=== PATIENT | male | born 1950 | race Caucasian/White ===

== ENCOUNTER 2017-02-04 03:47 | Inpatient (IN) | payer MEDICARE ==
[~2017-02-04] VITALS: Ht 185.4 cm; Wt 93.2 kg
[2017-02-04] MEDS ORDERED: IV NORMAL SALINE 1000ML BAG 1,000 ML IV SCH (04:46)
[2017-02-04 04:52] LABS: BASO # 0.1 x10^3/uL (0.0-0.2); BASO % 1 % (0-3); EOS % 1 % (0-3); HEMATOCRIT 29.6 % (39.0-53.0); HEMOGLOBIN 10.4 g/dL (13.0-17.5); LYMPH # 2.3 x10^3/uL (1.0-4.8); LYMPH % 31 % (24-48); MEAN CORPUSCULAR HEMOGLOBIN 33 pg (25-35); MEAN CORPUSCULAR HGB CONC 35 g/dL (31-37); MEAN CORPUSCULAR VOLUME 94 fL (79-100); MONO % 9 % (0-9); NEUT % 58 % (31-73); PLATELET COUNT 147 x10^3/uL (140-400); RED BLOOD COUNT 3.16 x10^6/uL (4.30-5.70); RED CELL DISTRIBUTION WIDTH 14.5 % (11.5-14.5); WHITE BLOOD COUNT 7.4 x10^3/uL (4.0-11.0)
[2017-02-04 04:59] LABS: CALCIUM 7.8 mg/dL (8.5-10.1); CREATININE 0.9 mg/dL (0.7-1.3); GFR 83.9; POTASSIUM 3.8 mmol/L (3.5-5.1)
[2017-02-04] MEDS ORDERED: FAMOTIDINE 20 MG/2 ML VIAL IVP ONE (05:00)
[2017-02-04] MEDS ORDERED: ONDANSETRON PF 4 MG/2 ML VIAL. IV ONE (05:00)
[2017-02-04 05:05] LABS: ALBUMIN 3.1 g/dL (3.4-5.0); ALBUMIN/GLOBULIN RATIO 0.9 (1.0-1.7); TOTAL BILIRUBIN 1.2 mg/dL (0.2-1.0); TOTAL PROTEIN 6.4 g/dL (6.4-8.2)
[2017-02-04] MEDS ORDERED: IV NORMAL SALINE 1000ML BAG 1,000 ML IV ONE (05:30)
--- NOTE | 2017-02-04 05:50 | PHYS DOC ---
Past Medical History Past Medical History: Diabetes-Type II Additional Past Medical Histor: states he use to receive medication for DM but no longer does. Alcohol Use: Occasionally Drug Use: Marijuana Adult General Chief Complaint Chief Complaint: MECHANICAL FALL HPI HPI Patient is a 66 year old male who presents to the emergency department by EMS after suffering a fall at home. The patient's girlfriend called after the patient was found on the floor. The patient is confused and is a poor historian. The patient does state that he is having pain in his abdomen and also states that he is very thirsty. Patient admits to consuming alcohol over the past 3 days. Patient states that he has had history of diabetes, however he lost approximately 70 pounds and states that he was told by his doctor that his diabetes had resolved after his weight loss ecchymosis on no medications for diabetes at this time. Patient states that his abdomen "hurts all over." Patient rates his pain on my examination as 5 out of 10. Patient states that he is very thirsty at this time and is requesting water. Review of Systems Review of Systems Constitutional: Denies fever or chills [] Eyes: Denies change in visual acuity, redness, or eye pain [] HENT: Denies nasal congestion or sore throat [] Respiratory: Denies cough or shortness of breath [] Cardiovascular: Denies chest pain or edema [] GI: Abdominal pain, nausea [] : Denies dysuria or hematuria [] Musculoskeletal: Denies back pain or joint pain [] Integument: Denies rash or skin lesions [] Neurologic: Headache, denies focal weakness or sensory changes [] Current Medications Current Medications Current Medications Medications (Trade) Dose Ordered Sig/Isamar Start Time Stop Time Status Last Admin Dose Admin Famotidine (Pepcid) 20 mg 1X ONCE 02/04/17 05:00 02/04/17 05:18 DC 02/04/17 05:16 20 MG Ondansetron HCl (Zofran) 4 mg 1X ONCE 02/04/17 05:00 02/04/17 05:18 DC 02/04/17 05:16 4 MG Sodium Chloride 1,000 ml @ 1,000 mls/hr Q1H 02/04/17 04:46 02/04/17 05:45 02/04/17 05:15 1,000 MLS/HR Allergies Allergies Allergies Coded Allergies Type Severity Reaction Last Updated Verified Penicillins Allergy Mild Unknown 02/04/17 Yes Physical Exam Physical Exam Constitutional: Alert, afebrile, appears ill. [] HENT: Normocephalic, atraumatic, bilateral external ears normal, oropharynx dry , no oral exudates, nose normal. [] Eyes: PERRLA, EOMI, conjunctiva normal, no discharge. [] Neck: Normal range of motion, no tenderness, supple, no stridor. [] Cardiovascular: Tachycardia, regular rhythm, no murmur [] Lungs & Thorax: Bilateral breath sounds clear to auscultation [] Abdomen: Bowel sounds normal, soft, no tenderness, no masses, no pulsatile masses. [] Skin: Warm, dry, no erythema, no rash. [] Back: No tenderness, no CVA tenderness. [] Extremities: No tenderness, no cyanosis, no clubbing, ROM intact, no edema. [] Neurologic: Alert, slight slurring of speech, normal motor function, normal sensory function, no focal deficits noted. [] Current Patient Data Vital Signs Vital Signs Date Time Temp Pulse Resp B/P (MAP) Pulse Ox O2 Delivery O2 Flow Rate FiO2 02/04/17 04:39 121 104/62 (76) 94 Room Air 02/04/17 04:06 98.4 20 98.4 Lab Values Laboratory Tests Test 02/04/17 03:55 02/04/17 04:48 White Blood Count 7.4 x10^3/uL (4.0-11.0) Red Blood Count 3.16 x10^6/uL (4.30-5.70) L Hemoglobin 10.4 g/dL (13.0-17.5) L Hematocrit 29.6 % (39.0-53.0) L Mean Corpuscular Volume 94 fL (79-100) Mean Corpuscular Hemoglobin 33 pg (25-35) Mean Corpuscular Hemoglobin Concent 35 g/dL (31-37) Red Cell Distribution Width 14.5 % (11.5-14.5) Platelet Count 147 x10^3/uL (140-400) Neutrophils (%) (Auto) 58 % (31-73) Lymphocytes (%) (Auto) 31 % (24-48) Monocytes (%) (Auto) 9 % (0-9) Eosinophils (%) (Auto) 1 % (0-3) Basophils (%) (Auto) 1 % (0-3) Neutrophils # (Auto) 4.3 x10^3uL (1.8-7.7) Lymphocytes # (Auto) 2.3 x10^3/uL (1.0-4.8) Monocytes # (Auto) 0.7 x10^3/uL (0.0-1.1) Eosinophils # (Auto) 0.1 x10^3/uL (0.0-0.7) Basophils # (Auto) 0.1 x10^3/uL (0.0-0.2) Sodium Level 143 mmol/L (136-145) Potassium Level 3.8 mmol/L (3.5-5.1) Chloride Level 102 mmol/L (98-107) Carbon Dioxide Level 24 mmol/L (21-32) Anion Gap 17 (6-14) H Blood Urea Nitrogen 41 mg/dL (8-26) H Creatinine 0.9 mg/dL (0.7-1.3) Estimated GFR (Cockcroft-Gault) 83.9 BUN/Creatinine Ratio 46 (6-20) H Glucose Level 180 mg/dL (70-99) H Calcium Level 7.8 mg/dL (8.5-10.1) L Total Bilirubin 1.2 mg/dL (0.2-1.0) H Aspartate Amino Transferase (AST) 75 U/L (15-37) H Alanine Aminotransferase (ALT) 65 U/L (16-63) H Alkaline Phosphatase 60 U/L (46-116) Total Protein 6.4 g/dL (6.4-8.2) Albumin 3.1 g/dL (3.4-5.0) L Albumin/Globulin Ratio 0.9 (1.0-1.7) L Lipase 102 U/L (73-393) Ethyl Alcohol Level 253 mg/dL (0-10) H Glucose (Fingerstick) 157 mg/dL (70-99) H Laboratory Tests 02/04/17 03:55 Laboratory Tests 02/04/17 03:55 EKG EKG Interpreted by me: Heart rate 123, sinus tachycardia, normal intervals, normal axis, no acute ST/T-wave abnormalities present [] Radiology/Procedures Radiology/Procedures 3 view acute abdominal series interpreted by me: No pulmonary infiltrates or effusions, normal cardiac silhouette, moderate to large amount of stool retained in colon[] Course & Med Decision Making Course & Med Decision Making Pertinent Labs and Imaging studies reviewed. (See chart for details) The patient appears severely dehydrated on exam and patient's lab work shows a significantly elevated BUN level with normal creatinine as well as an anion gap. I suspect that the patient is dehydrated secondary to alcoholic ketoacidosis. The patient started on IV fluids in the emergency department. Patient will be admitted for further care as patient's also display signs of mild confusion. I suspect that the patient is a daily alcohol drinker and a component of possible alcohol withdrawal may be present. I spoke with Dr. Rich who accepted care patient in hospital. Dragon Disclaimer Dragon Disclaimer This electronic medical record was generated, in whole or in part, using a voice recognition dictation system. Departure Departure Impression: Primary Impression: Dehydration Additional Impression: Alcoholic ketoacidosis Disposition: ADMITTED INPATIENT Admitting Physician: Cynthia Rich Condition: GUARDED Referrals: UNKNOWN PCP NAME (PCP) Problem Qualifiers TATIANA LOBO MD Feb 04, 2017 05:50
[2017-02-04] MEDS ORDERED: ONDANSETRON PF 4 MG/2 ML VIAL. IV PRN (06:00)
--- NOTE | 2017-02-04 06:15 | EKG ---
[facility] [address] [place] [address] Test Date: 2017-02-04 Test Time: 03:56:21 Pat Name: KATY PENDLETON Department: Room: Gender: M Heel Seat Laster: : 1950 Requested By: TATIANA LOBO Order Number: [id number] Reading MD: Jacky Mullins Measurements Intervals [place] Rate: 123 P: -138 [place]: 74 QRS: 19 QRSD: 68 T: 55 QT: 298 QTc: 432 Interpretive Statements SINUS TACHYCARDIA Electronically Signed On 02-04-2017 12:05:47 CDT by Jacky Mullins
[2017-02-04] MEDS: LORazepam 1 MG TABLET PO SCH ×3 (06:27→21:00)
[2017-02-04] MEDS: IV NORMAL SALINE 1000ML BAG 1,000 ML IV SCH ×3 (06:29→15:24)
--- NOTE | 2017-02-04 07:20 | RAD ---
Exam performed: Acute abdominal series. Clinical indication: Diffuse abdominal pain today Date of Service: 02/04/17. Comparison: Single view chest from 03/17/09 Findings: One view chest radiograph reveal a normal cardiomediastinal contour. The lungs are clear. Left shoulder arthroplasty. Multiple old healed left rib fractures are redemonstrated. Evidence of pleural fluid or free subdiaphragmatic air is absent. Mild gaseous prominence of the small bowel loops. There is diffuse scattered stool throughout the colon. A small density is seen overlying the midline sacrum could possibly represent an ingested material. No pathologic calcification or organomegaly is seen. Spondylotic changes involving the lumbar spine. Impression: No acute cardiopulmonary process seen. Mild gaseous prominence of the small bowel loop, likely mild ileus pattern. Extensive scattered stool throughout the colon suggesting constipation.
[2017-02-04] MEDS ORDERED: MULTIVITAMIN with MINERAL TABLET. PO SCH (09:00)
[2017-02-04] MEDS ORDERED: FOLIC ACID 1 MG TABLET. PO SCH (09:00)
[2017-02-04] MEDS ORDERED: THIAMINE 100 MG TABLET. PO SCH (09:00)
[2017-02-04 10:29] VITALS: BP 110/72
[2017-02-04 11:00] VITALS: BP 107/62
--- NOTE | 2017-02-04 13:01 | PDOC1 ---
History and Physical Date of Admission Date of Admission DATE: 02/04/17 TIME: 12:56 Identification/Chief Complaint Chief Complaint intox, fall Problems: Source Source: Chart review, Patient History of Present Illness History of Present Illness Mr. Rodriguez, is a 66 year old male admit after a fall at home, he was found on the floor. The patient is confused and is a poor historian. Intoxcated in the ER, alcohol level > 250, he has stopped drinking more than 8 hours before. He drinks "whatever he can get his hands on" he reports feeling improved, abd pain is better, no back pain heavy recent EtOH consumption, he is retired from [employer] Past Medical History Cardiovascular: No pertinent hx Pulmonary: No pertinent hx GI: No pertinent hx Heme/Onc: No pertinent hx Musculoskeletal: Osteoarthritis, Other (right wrist deformity he reports from [facility]) Family History Family History: No Significant Social History ALCOHOL: heavy Drugs: None Current Problem List Problem List Problems Medical Problems: (1) Alcoholic ketoacidosis Status: Acute (2) Dehydration Status: Acute Problems: Current Medications Current Medications Current Medications Sodium Chloride 1,000 ml @ 1,000 mls/hr Q1H IV Last administered on 02/04/17 05:15; Start 02/04/17 at 04:46; Stop 02/04/17 at 05:45; Status DC Ondansetron HCl (Zofran) 4 mg 1X ONCE IV Last administered on 02/04/17 05:16 ; Start 02/04/17 at 05:00; Stop 02/04/17 at 05:18; Status DC Famotidine (Pepcid) 20 mg 1X ONCE IVP Last administered on 02/04/17 05:16; Start 02/04/17 at 05:00; Stop 02/04/17 at 05:18; Status DC Sodium Chloride 1,000 ml @ 1,000 mls/hr 1X ONCE IV Last administered on 05:40; Start 02/04/17 at 05:30; Stop 02/04/17 at 06:30; Status DC Ondansetron HCl (Zofran) 4 mg PRN Q8HRS PRN IV NAUSEA/VOMITING; Start 02/04/17 at 06:00; Stop 02/05/17 at 05:59 Sodium Chloride 1,000 ml @ 150 mls/hr Q6H40M IV Last administered on t 07:35; Start 02/04/17 at 06:00; Stop 02/05/17 at 05:59 Multivitamins (Thera M Plus) 1 tab DAILY PO ; Start 02/04/17 at 09:00; Stop at 09:00; Status DC Folic Acid (Folic Acid) 1 mg DAILY PO ; Start 02/04/17 at 09:00; Stop 02/04/17 at 09:00; Status DC Lorazepam (Ativan) 2 mg Q6H PO Last administered on 02/04/17t 12:15; Start at 06:00; Stop 02/05/17 at 12:01 Thiamine Mononitrate (Vitamin B-1) 100 mg DAILY PO ; Start 02/04/17 at 09:00; Stop 02/04/17 at 09:00; Status DC Multivitamins (Thera M Plus) 1 tab DAILY PO ; Start 02/04/17 at 09:15 Folic Acid (Folic Acid) 1 mg DAILY PO ; Start 02/04/17 at 09:15 Thiamine Mononitrate (Vitamin B-1) 100 mg DAILY PO ; Start 02/04/17 at 09:15 Allergies Allergies: Coded Allergies: Penicillins (Verified Allergy, Mild, Unknown, 02/04/17) ROS General: No: Chills, Night Sweats, Fatigue, Malaise, Appetite, Other PSYCHOLOGICAL ROS: No: Anxiety, Behavioral Disorder, Concentration difficultie , Decreased libido, Depression, Disorientation, Hallucinations, Hostility, Irritablity, Memory difficulties, Mood Swings, Obsessive thoughts, Physical abuse, Sexual abuse, Sleep disturbances, Suicidal ideation, Other Eyes: No Blurry vision, No Decreased vision, No Double vision, No Dry eyes, No Excessive tearing, No Eye Pain, No Itchy Eyes, No Loss of vision, No Photophobia , No Scotomata, No Uses contacts, No Uses glasses, No Other HEENT: No: Heacaches, Visual Changes, Hearing change, Nasal congestion, Nasal discharge, Oral lesions, Sinus pain, Sore Throat, Epistaxis, Sneezing, Snoring, Tinnitus, Vertigo, Vocal changes, Other Cardiovascular: No Chest Pain, No Palpitations, No Orthopnea, No Paroxysmal Noc. Dyspnea, No Edema, No Lt Headedness, No Other Gastrointestinal: Yes Nausea, Yes Abdominal Pain, No Vomiting, No Diarrhea, No Constipation, No Melena, No Hematochezia, No Other Genitourinary: No Dysuria, No Frequency, No Incontinence, No Hematuria, No Retention, No Discharge, No Urgency, No Pain, No Flank Pain, No Other, No , No , No , No , No , No , No Musculoskeletal: Yes Joint Pain, Yes Joint Stiffness, Yes Pain In:, No Gait Disturbance, No Joint Swelling, No Muscle Pain, No Muscular Weakness , No Swelling In:, No Other Neurological: No Behavorial Changes, No Bowel/Bladder ControlChng, No Confusion , No Dizziness, No Gait Disturbance, No Headaches, No Impaired Coord/balance, No Memory Loss, No Numbness/Tingling, No Seizures, No Speech Problems, No Tremors, No Visual Changes, No Weakness, No Other Skin: Yes Dry Skin, No Eczema, No Hair Changes, No Lumps, No Mole Changes, No Mottling, No Nail Changes, No Pruritus, No Rash, No Skin Lesion Changes, No Other, No Acne Physical Exam General: Alert, Oriented X3, mild distress, moderate distress HEENT: Atraumatic, PERRLA, EOMI Lungs: Clear to auscultation Neuro: Other (asterixis is slight, + nystagmus) Vitals Vitals Vital Signs Date Time Temp Pulse Resp B/P (MAP) Pulse Ox O2 Delivery O2 Flow Rate FiO2 02/04/17 11:00 98.8 84 20 107/62 (77) 84 Room Air 98.8 Labs Labs Laboratory Tests Test 02/04/17 03:55 02/04/17 04:48 White Blood Count 7.4 x10^3/uL (4.0-11.0) Red Blood Count 3.16 x10^6/uL (4.30-5.70) Hemoglobin 10.4 g/dL (13.0-17.5) Hematocrit 29.6 % (39.0-53.0) Mean Corpuscular Volume 94 fL (79-100) Mean Corpuscular Hemoglobin 33 pg (25-35) Mean Corpuscular Hemoglobin Concent 35 g/dL (31-37) Red Cell Distribution Width 14.5 % (11.5-14.5) Platelet Count 147 x10^3/uL (140-400) Neutrophils (%) (Auto) 58 % (31-73) Lymphocytes (%) (Auto) 31 % (24-48) Monocytes (%) (Auto) 9 % (0-9) Eosinophils (%) (Auto) 1 % (0-3) Basophils (%) (Auto) 1 % (0-3) Neutrophils # (Auto) 4.3 x10^3uL (1.8-7.7) Lymphocytes # (Auto) 2.3 x10^3/uL (1.0-4.8) Monocytes # (Auto) 0.7 x10^3/uL (0.0-1.1) Eosinophils # (Auto) 0.1 x10^3/uL (0.0-0.7) Basophils # (Auto) 0.1 x10^3/uL (0.0-0.2) Sodium Level 143 mmol/L (136-145) Potassium Level 3.8 mmol/L (3.5-5.1) Chloride Level 102 mmol/L (98-107) Carbon Dioxide Level 24 mmol/L (21-32) Anion Gap 17 (6-14) Blood Urea Nitrogen 41 mg/dL (8-26) Creatinine 0.9 mg/dL (0.7-1.3) Estimated GFR (Cockcroft-Gault) 83.9 BUN/Creatinine Ratio 46 (6-20) Glucose Level 180 mg/dL (70-99) Calcium Level 7.8 mg/dL (8.5-10.1) Total Bilirubin 1.2 mg/dL (0.2-1.0) Aspartate Amino Transf (AST/SGOT) 75 U/L (15-37) Alanine Aminotransferase (ALT/SGPT) 65 U/L (16-63) Alkaline Phosphatase 60 U/L (46-116) Total Protein 6.4 g/dL (6.4-8.2) Albumin 3.1 g/dL (3.4-5.0) Albumin/Globulin Ratio 0.9 (1.0-1.7) Lipase 102 U/L (73-393) Ethyl Alcohol Level 253 mg/dL (0-10) Glucose (Fingerstick) 157 mg/dL (70-99) Laboratory Tests Test 02/04/17 03:55 02/04/17 04:48 White Blood Count 7.4 x10^3/uL (4.0-11.0) Red Blood Count 3.16 x10^6/uL (4.30-5.70) Hemoglobin 10.4 g/dL (13.0-17.5) Hematocrit 29.6 % (39.0-53.0) Mean Corpuscular Volume 94 fL (79-100) Mean Corpuscular Hemoglobin 33 pg (25-35) Mean Corpuscular Hemoglobin Concent 35 g/dL (31-37) Red Cell Distribution Width 14.5 % (11.5-14.5) Platelet Count 147 x10^3/uL (140-400) Neutrophils (%) (Auto) 58 % (31-73) Lymphocytes (%) (Auto) 31 % (24-48) Monocytes (%) (Auto) 9 % (0-9) Eosinophils (%) (Auto) 1 % (0-3) Basophils (%) (Auto) 1 % (0-3) Neutrophils # (Auto) 4.3 x10^3uL (1.8-7.7) Lymphocytes # (Auto) 2.3 x10^3/uL (1.0-4.8) Monocytes # (Auto) 0.7 x10^3/uL (0.0-1.1) Eosinophils # (Auto) 0.1 x10^3/uL (0.0-0.7) Basophils # (Auto) 0.1 x10^3/uL (0.0-0.2) Sodium Level 143 mmol/L (136-145) Potassium Level 3.8 mmol/L (3.5-5.1) Chloride Level 102 mmol/L (98-107) Carbon Dioxide Level 24 mmol/L (21-32) Anion Gap 17 (6-14) Blood Urea Nitrogen 41 mg/dL (8-26) Creatinine 0.9 mg/dL (0.7-1.3) Estimated GFR (Cockcroft-Gault) 83.9 BUN/Creatinine Ratio 46 (6-20) Glucose Level 180 mg/dL (70-99) Calcium Level 7.8 mg/dL (8.5-10.1) Total Bilirubin 1.2 mg/dL (0.2-1.0) Aspartate Amino Transf (AST/SGOT) 75 U/L (15-37) Alanine Aminotransferase (ALT/SGPT) 65 U/L (16-63) Alkaline Phosphatase 60 U/L (46-116) Total Protein 6.4 g/dL (6.4-8.2) Albumin 3.1 g/dL (3.4-5.0) Albumin/Globulin Ratio 0.9 (1.0-1.7) Lipase 102 U/L (73-393) Ethyl Alcohol Level 253 mg/dL (0-10) Glucose (Fingerstick) 157 mg/dL (70-99) VTE Prophylaxis Ordered VTE Prophylaxis Devices: No VTE Pharmacological Prophylaxi: Yes Assessment/Plan Assessment/Plan Acute toxic encephalopathy, EtOH intoxication and etOH abuse Acute abd pain, EtOH abuse, possible gastritis, cont IV h2 gary Banana bag, then PO, iv fluid clear liquids as tolerated SHARONA SLATER MD Feb 04, 2017 13:01
[2017-02-04] MEDS ORDERED: FAMOTIDINE 20 MG/2 ML VIAL IVP SCH (13:30)
[2017-02-04] MEDS ORDERED: MULTIVIT INFUSN,ADULT 4,VIT K 10 ML, FOLIC ACID 1 MG, THIAMINE 100 MG in IV RINGERS,LAC... IV ONE (13:30)
[2017-02-04 15:00] VITALS: BP 147/84
[2017-02-04] MEDS ORDERED: CARVEDILOL 6.25 MG TABLET. PO SCH (17:00)
[2017-02-04] MEDS: CARVEDILOL 3.125 MG TABLET. PO SCH (17:21)
[2017-02-04] MEDS: PANTOPRAZOLE SODIUM IV 80 MG in IV NORMAL SALINE 100ML 100 ML IV SCH (17:22)
[2017-02-04 17:38] LABS: BASO % 1 % (0-3); EOS % 1 % (0-3); HEMATOCRIT 22.6 % (39.0-53.0); HEMOGLOBIN 7.8 g/dL (13.0-17.5); LYMPH # 1.2 x10^3/uL (1.0-4.8); LYMPH % 14 % (24-48); MEAN CORPUSCULAR HEMOGLOBIN 33 pg (25-35); MEAN CORPUSCULAR HGB CONC 35 g/dL (31-37); MEAN CORPUSCULAR VOLUME 94 fL (79-100); MONO % 8 % (0-9); NEUT % 77 % (31-73); PLATELET COUNT 104 x10^3/uL (140-400); RED BLOOD COUNT 2.41 x10^6/uL (4.30-5.70); RED CELL DISTRIBUTION WIDTH 14.5 % (11.5-14.5); WHITE BLOOD COUNT 8.2 x10^3/uL (4.0-11.0)
[2017-02-04 19:00] VITALS: BP 170/90
[2017-02-04 19:12] LABS: INR 1.2 (0.8-1.1); PROTHROMBIN TIME PATIENT 14.5 SEC (11.7-14.0)
[2017-02-04 20:14] VITALS: BP 145/84
[2017-02-04 23:00] VITALS: BP 125/72
[2017-02-04 23:05] LABS: BASO % 0 % (0-3); EOS % 1 % (0-3); HEMATOCRIT 21.7 % (39.0-53.0); HEMOGLOBIN 7.5 g/dL (13.0-17.5); LYMPH # 1.6 x10^3/uL (1.0-4.8); LYMPH % 21 % (24-48); MEAN CORPUSCULAR HEMOGLOBIN 33 pg (25-35); MEAN CORPUSCULAR HGB CONC 35 g/dL (31-37); MEAN CORPUSCULAR VOLUME 94 fL (79-100); MONO % 10 % (0-9); NEUT % 68 % (31-73); PLATELET COUNT 98 x10^3/uL (140-400); RED CELL DISTRIBUTION WIDTH 14.1 % (11.5-14.5); WHITE BLOOD COUNT 7.7 x10^3/uL (4.0-11.0)
[2017-02-05] VITALS (7 sets, daily range): BP systolic 117–144; BP diastolic 72–95
[2017-02-05] MEDS: IV NORMAL SALINE 1000ML BAG 1,000 ML IV SCH ×2 (00:20→02:00)
[2017-02-05] MEDS: PANTOPRAZOLE SODIUM IV 80 MG in IV NORMAL SALINE 100ML 100 ML IV SCH ×2 (01:41→10:55)
--- NOTE | 2017-02-05 02:03 | ACF ---
Admission Forms Criteria DEHYDRATION Clinical Indications for Admission to Inpatient Care ([place]/check or initial the applicable condition/criteria) Admission is indicated for 1or more of the following (1)(2)(3) [ ]I. Serious cause for dehydration requiring acute hospitalization(e.g., bowel obstruction, increased intracranial pressure, infectious cause) [X]II. Inpatient admission required [A] rather than observation care (see Dehydration:Observation Care guideline as appropriate)because of ANY ONE of the following (4)(5) [ ]a) Vomiting that is severe or persistent [X]a) Dehydration that is severe or persistent [ ]a) IV fluid required rather than oral rehydration to replace significant ongoing(eg, for greater than 24 hours)losses(greaterthan3 L/[id number] ) (6) [ ]a) Parenteral nutrition regimen that must be implemented on inpatient basis [ ]a) Other condition, treatment, or monitoring requiring inpatient admission Extended stay beyond goal length of stay may be needed for (1)(2)(3)(9) [ ]a) Chronic severe dehydration [ ]b) Persistent vital sign changes, severe electrolyte imbalance, or diagnosed cause of dehydration that requires continued hospitalization(e.g., bowel obstruction, increased intracranial pressure) [ ]c) Severe comorbid illness (e.g., renal failure, heart failure, poorly controlled diabetes) [ ]d) Older patients (75 years or older) The original [facility] content created by [facility] has been revised. The portions of the content which have been revised are identified through the use of italic text, and [facility] has neither reviewed nor approved the modified material. All other unmodified content is copyright [email or web address]. Please see references footnoted in the original [email or web address] edition 2014 Admission Criteria Met?: Yes LILY PATHAK Feb 05, 2017 02:03
[2017-02-05 04:29] LABS: BASO % 1 % (0-3); EOS % 1 % (0-3); HEMATOCRIT 21.8 % (39.0-53.0); HEMOGLOBIN 7.7 g/dL (13.0-17.5); LYMPH # 1.4 x10^3/uL (1.0-4.8); LYMPH % 20 % (24-48); MEAN CORPUSCULAR HEMOGLOBIN 34 pg (25-35); MEAN CORPUSCULAR HGB CONC 35 g/dL (31-37); MEAN CORPUSCULAR VOLUME 95 fL (79-100); MONO % 8 % (0-9); NEUT % 71 % (31-73); PLATELET COUNT 98 x10^3/uL (140-400); RED CELL DISTRIBUTION WIDTH 14.5 % (11.5-14.5); WHITE BLOOD COUNT 6.9 x10^3/uL (4.0-11.0)
[2017-02-05 08:20] LABS: ALBUMIN 2.7 g/dL (3.4-5.0); CALCIUM 7.3 mg/dL (8.5-10.1); CREATININE 0.9 mg/dL (0.7-1.3); GFR 83.9; POTASSIUM 3.4 mmol/L (3.5-5.1); TOTAL BILIRUBIN 2.3 mg/dL (0.2-1.0); TOTAL PROTEIN 5.5 g/dL (6.4-8.2)
[2017-02-05] MEDS: CARVEDILOL 3.125 MG TABLET. PO SCH ×2 (08:30→16:41)
[2017-02-05] MEDS: LORazepam 1 MG TABLET PO SCH ×2 (08:31→21:16)
--- NOTE | 2017-02-05 08:40 | PDOC2 ---
GI CONSULT Reason For Consult: Bloody stool HPI: HPI: 66 y/o male admitted through the ER yesterday, poor historian. Apparently found by girlfriend at home after fall. Tells me has had a headache for awhile with left leg pain, also has been drinking excessively. Can't quantify amount, but "more than a bottle" of whiskey daily. For pain has been taking ibuprofen and Tylenol. Overnight staff witnessed dark stool x 2. No in C Diff precautions, NPO on PPI drip. RN says Ativan held because "he's been out of it. " Labs significant for Hgb 10.4 on admit, fell w/ hydration to mid 7s. Plt 98 , INR 1.2. BUN is 41 w/ Cr 0.9. Glucose 180, bili 1.2, AST 75, ALT 65, normal Alk Phos and lipase. Ethyl alcohol 253. He mentions "stomach problems" but says this started after admission (although ER note documents complaints of pain including abd pain). Denies n/v, hematemesis, abd pain. Has intentionally lost weight. No diarrhea, constipation, or hematochezia. H/o GERD prior to weight loss, occasionally took Tums, no longer bothersome. Reports normal colonoscopy at the [facility] ~4-5 years ago. No previous EGD. Denies pancreatic or gallbladder history. PMH: PMH: DM, GERD, substance abuse, left shoulder surgery FH: Family History: Other (alcoholism) Social History: Smoke: Quit ALCOHOL: heavy Drugs: Marijuana, Crystal meth ROS: GEN: +fall HEENT: Denies blurred vision, sore throat CV: Denies chest pain RESP: Denies shortness of air, cough GI: Per HPI : Denies hematuria, dysuria ENDO: +intentional weight loss NEURO: +headache MSK: +left leg pain SKIN: Denies jaundice, pruritus Vitals: Vitals: Vital Signs Date Time Temp Pulse Resp B/P (MAP) Pulse Ox O2 Delivery O2 Flow Rate FiO2 02/05/17 03:00 108 20 139/88 (105) 95 Room Air 02/04/17 23:00 98.9 98.9 Labs: Labs: Laboratory Tests Test 02/04/17 17:15 02/04/17 18:45 02/04/17 22:45 02/05/17 04:20 White Blood Count 8.2 x10^3/uL (4.0-11.0) 7.7 x10^3/uL (4.0-11.0) 6.9 x10^3/uL (4.0-11.0) Red Blood Count 2.41 x10^6/uL (4.30-5.70) 2.30 x10^6/uL (4.30-5.70) 2.30 x10^6/uL (4.30-5.70) Hemoglobin 7.8 g/dL (13.0-17.5) 7.5 g/dL (13.0-17.5) 7.7 g/dL (13.0-17.5) Hematocrit 22.6 % (39.0-53.0) 21.7 % (39.0-53.0) 21.8 % (39.0-53.0) Mean Corpuscular Volume 94 fL (79-100) 94 fL (79-100) 95 fL (79-100) Mean Corpuscular Hemoglobin 33 pg (25-35) 33 pg (25-35) 34 pg (25-35) Mean Corpuscular Hemoglobin Concent 35 g/dL (31-37) 35 g/dL (31-37) 35 g/dL (31-37) Red Cell Distribution Width 14.5 % (11.5-14.5) 14.1 % (11.5-14.5) 14.5 % (11.5-14.5) Platelet Count 104 x10^3/uL (140-400) 98 x10^3/uL (140-400) 98 x10^3/uL (140-400) Neutrophils (%) (Auto) 77 % (31-73) 68 % (31-73) 71 % (31-73) Lymphocytes (%) (Auto) 14 % (24-48) 21 % (24-48) 20 % (24-48) Monocytes (%) (Auto) 8 % (0-9) 10 % (0-9) 8 % (0-9) Eosinophils (%) (Auto) 1 % (0-3) 1 % (0-3) 1 % (0-3) Basophils (%) (Auto) 1 % (0-3) 0 % (0-3) 1 % (0-3) Neutrophils # (Auto) 6.3 x10^3uL (1.8-7.7) 5.2 x10^3uL (1.8-7.7) 4.9 x10^3uL (1.8-7.7) Lymphocytes # (Auto) 1.2 x10^3/uL (1.0-4.8) 1.6 x10^3/uL (1.0-4.8) 1.4 x10^3/uL (1.0-4.8) Monocytes # (Auto) 0.6 x10^3/uL (0.0-1.1) 0.8 x10^3/uL (0.0-1.1) 0.5 x10^3/uL (0.0-1.1) Eosinophils # (Auto) 0.1 x10^3/uL (0.0-0.7) 0.1 x10^3/uL (0.0-0.7) 0.1 x10^3/uL (0.0-0.7) Basophils # (Auto) 0.0 x10^3/uL (0.0-0.2) 0.0 x10^3/uL (0.0-0.2) 0.0 x10^3/uL (0.0-0.2) Prothrombin Time 14.5 SEC (11.7-14.0) Prothromb Time International Ratio 1.2 (0.8-1.1) Allergies: Coded Allergies: Penicillins (Verified Allergy, Mild, Unknown, 02/04/17) Medications: Current Medications Medications (Trade) Dose Ordered Sig/Isamar Route PRN Reason Start Time Stop Time Status Last Admin Dose Admin Multivitamins 10 ml/Folic Acid 1 mg/Thiamine HCl 100 mg/Ringer's Solution 1,011.2 ml @ 1,000 mls/ hr 1X ONCE IV 02/04/17 13:30 02/04/17 14:30 DC 02/04/17 14:15 Famotidine (Pepcid) 20 mg BID IVP 02/04/17 13:30 02/04/17 16:56 DC 02/04/17 14:16 Carvedilol (Coreg) 3.125 mg BIDWMEALS PO 02/04/17 17:00 02/04/17 17:21 Pantoprazole Sodium 80 mg/ Sodium Chloride 100 ml @ 10 mls/hr Q10H IV 02/04/17 17:00 02/05/17 01:41 Imaging: Imaging: Acute Abd Series 02/04/17 Impression: No acute cardiopulmonary process seen. Mild gaseous prominence of the small bowel loop, likely mild ileus pattern. Extensive scattered stool throughout the colon suggesting constipation. PE: GEN: NAD, was asleep HEENT: Atraumatic, PERRL LUNGS: CTAB anteriorly HEART: RRR ABD: NABS, S/ND/NT EXTREMITY: No edema SKIN: No jaundice NEURO/PSYCH: A & O 3, probably some confusion A/P: A/P: Fall, headache, leg pain -taking NSAIDs and Tylenol Alcoholism Dark stools -overnight x 2 Anemia -Hgb from 10.4 to 7.7 CRC screen -reports normal [facility] ~4-5 years ago -- Keep NPO on PPI drip. EGD this afternoon r/o upper GI source of anemia, dark stools. D/w RN, GI lab. CHILO VIEYRA Feb 05, 2017 08:40
[2017-02-05] MEDS: MULTIVITAMIN with MINERAL TABLET. PO SCH (09:00)
[2017-02-05] MEDS: THIAMINE 100 MG TABLET. PO SCH (09:00)
[2017-02-05] MEDS: FOLIC ACID 1 MG TABLET. PO SCH (09:00)
[2017-02-05 09:43] LABS: INR 1.2 (0.8-1.1)
--- NOTE | 2017-02-05 10:04 | PDOC ---
PROGRESS NOTES Chief Complaint Chief Complaint melena last night acute blood loss anemia, GI bleed, upper improved Acute toxic encephalopathy, EtOH intoxication and etOH abuse cont EtOH withdrawl treatment Acute abd pain, gastritis, History of Present Illness History of Present Illness Hgb dropped, then stable overnight, high 7 range X3 PPI gtt started, GI consult following, EGD today no PRBC given cont ativan sched and PRN change IV fluid to have K+, hypokalemia today Vitals Vitals Vital Signs Date Time Temp Pulse Resp B/P (MAP) Pulse Ox O2 Delivery O2 Flow Rate FiO2 02/05/17 08:30 101 136/95 02/05/17 07:00 98.4 20 95 Room Air 98.4 Physical Exam General: Alert, Oriented X3, mild distress, moderate distress Heart: Regular rate Lungs: Wheezing Abdomen: Normal bowel sounds, Soft Extremities: No clubbing, No cyanosis Skin: No breakdown Labs LABS Laboratory Tests Test 02/04/17 17:15 02/04/17 18:45 02/04/17 22:45 02/05/17 04:20 White Blood Count 8.2 x10^3/uL (4.0-11.0) 7.7 x10^3/uL (4.0-11.0) 6.9 x10^3/uL (4.0-11.0) Red Blood Count 2.41 x10^6/uL (4.30-5.70) 2.30 x10^6/uL (4.30-5.70) 2.30 x10^6/uL (4.30-5.70) Hemoglobin 7.8 g/dL (13.0-17.5) 7.5 g/dL (13.0-17.5) 7.7 g/dL (13.0-17.5) Hematocrit 22.6 % (39.0-53.0) 21.7 % (39.0-53.0) 21.8 % (39.0-53.0) Mean Corpuscular Volume 94 fL (79-100) 94 fL (79-100) 95 fL (79-100) Mean Corpuscular Hemoglobin 33 pg (25-35) 33 pg (25-35) 34 pg (25-35) Mean Corpuscular Hemoglobin Concent 35 g/dL (31-37) 35 g/dL (31-37) 35 g/dL (31-37) Red Cell Distribution Width 14.5 % (11.5-14.5) 14.1 % (11.5-14.5) 14.5 % (11.5-14.5) Platelet Count 104 x10^3/uL (140-400) 98 x10^3/uL (140-400) 98 x10^3/uL (140-400) Neutrophils (%) (Auto) 77 % (31-73) 68 % (31-73) 71 % (31-73) Lymphocytes (%) (Auto) 14 % (24-48) 21 % (24-48) 20 % (24-48) Monocytes (%) (Auto) 8 % (0-9) 10 % (0-9) 8 % (0-9) Eosinophils (%) (Auto) 1 % (0-3) 1 % (0-3) 1 % (0-3) Basophils (%) (Auto) 1 % (0-3) 0 % (0-3) 1 % (0-3) Neutrophils # (Auto) 6.3 x10^3uL (1.8-7.7) 5.2 x10^3uL (1.8-7.7) 4.9 x10^3uL (1.8-7.7) Lymphocytes # (Auto) 1.2 x10^3/uL (1.0-4.8) 1.6 x10^3/uL (1.0-4.8) 1.4 x10^3/uL (1.0-4.8) Monocytes # (Auto) 0.6 x10^3/uL (0.0-1.1) 0.8 x10^3/uL (0.0-1.1) 0.5 x10^3/uL (0.0-1.1) Eosinophils # (Auto) 0.1 x10^3/uL (0.0-0.7) 0.1 x10^3/uL (0.0-0.7) 0.1 x10^3/uL (0.0-0.7) Basophils # (Auto) 0.0 x10^3/uL (0.0-0.2) 0.0 x10^3/uL (0.0-0.2) 0.0 x10^3/uL (0.0-0.2) Prothrombin Time 14.5 SEC (11.7-14.0) 14.0 SEC (11.7-14.0) Prothromb Time International Ratio 1.2 (0.8-1.1) 1.2 (0.8-1.1) Sodium Level 142 mmol/L (136-145) Potassium Level 3.4 mmol/L (3.5-5.1) Chloride Level 107 mmol/L (98-107) Carbon Dioxide Level 27 mmol/L (21-32) Anion Gap 8 (6-14) Blood Urea Nitrogen 25 mg/dL (8-26) Creatinine 0.9 mg/dL (0.7-1.3) Estimated GFR (Cockcroft-Gault) 83.9 BUN/Creatinine Ratio 28 (6-20) Glucose Level 155 mg/dL (70-99) Calcium Level 7.3 mg/dL (8.5-10.1) Total Bilirubin 2.3 mg/dL (0.2-1.0) Aspartate Amino Transf (AST/SGOT) 39 U/L (15-37) Alanine Aminotransferase (ALT/SGPT) 48 U/L (16-63) Alkaline Phosphatase 45 U/L (46-116) Total Protein 5.5 g/dL (6.4-8.2) Albumin 2.7 g/dL (3.4-5.0) Albumin/Globulin Ratio 1.0 (1.0-1.7) Test 02/05/17 09:00 Ammonia 19 mcmol/L (11-34) Review of Systems Review of Systems nausea abd pain better no Assessment and Plan Assessmemt and Plan Problems Medical Problems: (1) Alcoholic ketoacidosis Status: Acute (2) Dehydration Status: Acute Problems: Comment Review of Relevant I have reviewed the following items renetta (where applicable) has been applied. Labs Laboratory Tests Test 02/04/17 03:55 02/04/17 04:48 02/04/17 17:15 02/04/17 18:45 White Blood Count 7.4 x10^3/uL (4.0-11.0) 8.2 x10^3/uL (4.0-11.0) Red Blood Count 3.16 x10^6/uL (4.30-5.70) 2.41 x10^6/uL (4.30-5.70) Hemoglobin 10.4 g/dL (13.0-17.5) 7.8 g/dL (13.0-17.5) Hematocrit 29.6 % (39.0-53.0) 22.6 % (39.0-53.0) Mean Corpuscular Volume 94 fL (79-100) 94 fL (79-100) Mean Corpuscular Hemoglobin 33 pg (25-35) 33 pg (25-35) Mean Corpuscular Hemoglobin Concent 35 g/dL (31-37) 35 g/dL (31-37) Red Cell Distribution Width 14.5 % (11.5-14.5) 14.5 % (11.5-14.5) Platelet Count 147 x10^3/uL (140-400) 104 x10^3/uL (140-400) Neutrophils (%) (Auto) 58 % (31-73) 77 % (31-73) Lymphocytes (%) (Auto) 31 % (24-48) 14 % (24-48) Monocytes (%) (Auto) 9 % (0-9) 8 % (0-9) Eosinophils (%) (Auto) 1 % (0-3) 1 % (0-3) Basophils (%) (Auto) 1 % (0-3) 1 % (0-3) Neutrophils # (Auto) 4.3 x10^3uL (1.8-7.7) 6.3 x10^3uL (1.8-7.7) Lymphocytes # (Auto) 2.3 x10^3/uL (1.0-4.8) 1.2 x10^3/uL (1.0-4.8) Monocytes # (Auto) 0.7 x10^3/uL (0.0-1.1) 0.6 x10^3/uL (0.0-1.1) Eosinophils # (Auto) 0.1 x10^3/uL (0.0-0.7) 0.1 x10^3/uL (0.0-0.7) Basophils # (Auto) 0.1 x10^3/uL (0.0-0.2) 0.0 x10^3/uL (0.0-0.2) Sodium Level 143 mmol/L (136-145) Potassium Level 3.8 mmol/L (3.5-5.1) Chloride Level 102 mmol/L (98-107) Carbon Dioxide Level 24 mmol/L (21-32) Anion Gap 17 (6-14) Blood Urea Nitrogen 41 mg/dL (8-26) Creatinine 0.9 mg/dL (0.7-1.3) Estimated GFR (Cockcroft-Gault) 83.9 BUN/Creatinine Ratio 46 (6-20) Glucose Level 180 mg/dL (70-99) Calcium Level 7.8 mg/dL (8.5-10.1) Total Bilirubin 1.2 mg/dL (0.2-1.0) Aspartate Amino Transf (AST/SGOT) 75 U/L (15-37) Alanine Aminotransferase (ALT/SGPT) 65 U/L (16-63) Alkaline Phosphatase 60 U/L (46-116) Total Protein 6.4 g/dL (6.4-8.2) Albumin 3.1 g/dL (3.4-5.0) Albumin/Globulin Ratio 0.9 (1.0-1.7) Lipase 102 U/L (73-393) Ethyl Alcohol Level 253 mg/dL (0-10) Glucose (Fingerstick) 157 mg/dL (70-99) Prothrombin Time 14.5 SEC (11.7-14.0) Prothromb Time International Ratio 1.2 (0.8-1.1) Test 02/04/17 22:45 02/05/17 04:20 02/05/17 09:00 White Blood Count 7.7 x10^3/uL (4.0-11.0) 6.9 x10^3/uL (4.0-11.0) Red Blood Count 2.30 x10^6/uL (4.30-5.70) 2.30 x10^6/uL (4.30-5.70) Hemoglobin 7.5 g/dL (13.0-17.5) 7.7 g/dL (13.0-17.5) Hematocrit 21.7 % (39.0-53.0) 21.8 % (39.0-53.0) Mean Corpuscular Volume 94 fL (79-100) 95 fL (79-100) Mean Corpuscular Hemoglobin 33 pg (25-35) 34 pg (25-35) Mean Corpuscular Hemoglobin Concent 35 g/dL (31-37) 35 g/dL (31-37) Red Cell Distribution Width 14.1 % (11.5-14.5) 14.5 % (11.5-14.5) Platelet Count 98 x10^3/uL (140-400) 98 x10^3/uL (140-400) Neutrophils (%) (Auto) 68 % (31-73) 71 % (31-73) Lymphocytes (%) (Auto) 21 % (24-48) 20 % (24-48) Monocytes (%) (Auto) 10 % (0-9) 8 % (0-9) Eosinophils (%) (Auto) 1 % (0-3) 1 % (0-3) Basophils (%) (Auto) 0 % (0-3) 1 % (0-3) Neutrophils # (Auto) 5.2 x10^3uL (1.8-7.7) 4.9 x10^3uL (1.8-7.7) Lymphocytes # (Auto) 1.6 x10^3/uL (1.0-4.8) 1.4 x10^3/uL (1.0-4.8) Monocytes # (Auto) 0.8 x10^3/uL (0.0-1.1) 0.5 x10^3/uL (0.0-1.1) Eosinophils # (Auto) 0.1 x10^3/uL (0.0-0.7) 0.1 x10^3/uL (0.0-0.7) Basophils # (Auto) 0.0 x10^3/uL (0.0-0.2) 0.0 x10^3/uL (0.0-0.2) Prothrombin Time 14.0 SEC (11.7-14.0) Prothromb Time International Ratio 1.2 (0.8-1.1) Sodium Level 142 mmol/L (136-145) Potassium Level 3.4 mmol/L (3.5-5.1) Chloride Level 107 mmol/L (98-107) Carbon Dioxide Level 27 mmol/L (21-32) Anion Gap 8 (6-14) Blood Urea Nitrogen 25 mg/dL (8-26) Creatinine 0.9 mg/dL (0.7-1.3) Estimated GFR (Cockcroft-Gault) 83.9 BUN/Creatinine Ratio 28 (6-20) Glucose Level 155 mg/dL (70-99) Calcium Level 7.3 mg/dL (8.5-10.1) Total Bilirubin 2.3 mg/dL (0.2-1.0) Aspartate Amino Transf (AST/SGOT) 39 U/L (15-37) Alanine Aminotransferase (ALT/SGPT) 48 U/L (16-63) Alkaline Phosphatase 45 U/L (46-116) Total Protein 5.5 g/dL (6.4-8.2) Albumin 2.7 g/dL (3.4-5.0) Albumin/Globulin Ratio 1.0 (1.0-1.7) Ammonia 19 mcmol/L (11-34) Laboratory Tests Test 02/04/17 17:15 02/04/17 18:45 02/04/17 22:45 02/05/17 04:20 White Blood Count 8.2 x10^3/uL (4.0-11.0) 7.7 x10^3/uL (4.0-11.0) 6.9 x10^3/uL (4.0-11.0) Red Blood Count 2.41 x10^6/uL (4.30-5.70) 2.30 x10^6/uL (4.30-5.70) 2.30 x10^6/uL (4.30-5.70) Hemoglobin 7.8 g/dL (13.0-17.5) 7.5 g/dL (13.0-17.5) 7.7 g/dL (13.0-17.5) Hematocrit 22.6 % (39.0-53.0) 21.7 % (39.0-53.0) 21.8 % (39.0-53.0) Mean Corpuscular Volume 94 fL (79-100) 94 fL (79-100) 95 fL (79-100) Mean Corpuscular Hemoglobin 33 pg (25-35) 33 pg (25-35) 34 pg (25-35) Mean Corpuscular Hemoglobin Concent 35 g/dL (31-37) 35 g/dL (31-37) 35 g/dL (31-37) Red Cell Distribution Width 14.5 % (11.5-14.5) 14.1 % (11.5-14.5) 14.5 % (11.5-14.5) Platelet Count 104 x10^3/uL (140-400) 98 x10^3/uL (140-400) 98 x10^3/uL (140-400) Neutrophils (%) (Auto) 77 % (31-73) 68 % (31-73) 71 % (31-73) Lymphocytes (%) (Auto) 14 % (24-48) 21 % (24-48) 20 % (24-48) Monocytes (%) (Auto) 8 % (0-9) 10 % (0-9) 8 % (0-9) Eosinophils (%) (Auto) 1 % (0-3) 1 % (0-3) 1 % (0-3) Basophils (%) (Auto) 1 % (0-3) 0 % (0-3) 1 % (0-3) Neutrophils # (Auto) 6.3 x10^3uL (1.8-7.7) 5.2 x10^3uL (1.8-7.7) 4.9 x10^3uL (1.8-7.7) Lymphocytes # (Auto) 1.2 x10^3/uL (1.0-4.8) 1.6 x10^3/uL (1.0-4.8) 1.4 x10^3/uL (1.0-4.8) Monocytes # (Auto) 0.6 x10^3/uL (0.0-1.1) 0.8 x10^3/uL (0.0-1.1) 0.5 x10^3/uL (0.0-1.1) Eosinophils # (Auto) 0.1 x10^3/uL (0.0-0.7) 0.1 x10^3/uL (0.0-0.7) 0.1 x10^3/uL (0.0-0.7) Basophils # (Auto) 0.0 x10^3/uL (0.0-0.2) 0.0 x10^3/uL (0.0-0.2) 0.0 x10^3/uL (0.0-0.2) Prothrombin Time 14.5 SEC (11.7-14.0) 14.0 SEC (11.7-14.0) Prothromb Time International Ratio 1.2 (0.8-1.1) 1.2 (0.8-1.1) Sodium Level 142 mmol/L (136-145) Potassium Level 3.4 mmol/L (3.5-5.1) Chloride Level 107 mmol/L (98-107) Carbon Dioxide Level 27 mmol/L (21-32) Anion Gap 8 (6-14) Blood Urea Nitrogen 25 mg/dL (8-26) Creatinine 0.9 mg/dL (0.7-1.3) Estimated GFR (Cockcroft-Gault) 83.9 BUN/Creatinine Ratio 28 (6-20) Glucose Level 155 mg/dL (70-99) Calcium Level 7.3 mg/dL (8.5-10.1) Total Bilirubin 2.3 mg/dL (0.2-1.0) Aspartate Amino Transf (AST/SGOT) 39 U/L (15-37) Alanine Aminotransferase (ALT/SGPT) 48 U/L (16-63) Alkaline Phosphatase 45 U/L (46-116) Total Protein 5.5 g/dL (6.4-8.2) Albumin 2.7 g/dL (3.4-5.0) Albumin/Globulin Ratio 1.0 (1.0-1.7) Test 02/05/17 09:00 Ammonia 19 mcmol/L (11-34) Medications Current Medications Sodium Chloride 1,000 ml @ 1,000 mls/hr Q1H IV Last administered on 02/04/17 05:15; Start 02/04/17 at 04:46; Stop 02/04/17 at 05:45; Status DC Ondansetron HCl (Zofran) 4 mg 1X ONCE IV Last administered on 02/04/17 05:16 ; Start 02/04/17 at 05:00; Stop 02/04/17 at 05:18; Status DC Famotidine (Pepcid) 20 mg 1X ONCE IVP Last administered on 02/04/17 05:16; Start 02/04/17 at 05:00; Stop 02/04/17 at 05:18; Status DC Sodium Chloride 1,000 ml @ 1,000 mls/hr 1X ONCE IV Last administered on 05:40; Start 02/04/17 at 05:30; Stop 02/04/17 at 06:30; Status DC Ondansetron HCl (Zofran) 4 mg PRN Q8HRS PRN IV NAUSEA/VOMITING; Start 02/04/17 at 06:00; Stop 02/05/17 at 07:17; Status DC Sodium Chloride 1,000 ml @ 150 mls/hr Q6H40M IV Last administered on 00:20; Start 02/04/17 at 06:00; Stop 02/05/17 at 07:17; Status DC Multivitamins (Thera M Plus) 1 tab DAILY PO ; Start 02/04/17 at 09:00; Stop at 09:00; Status DC Folic Acid (Folic Acid) 1 mg DAILY PO ; Start 02/04/17 at 09:00; Stop 02/04/17 at 09:00; Status DC Lorazepam (Ativan) 2 mg Q6H PO Last administered on 02/04/17 12:15; Start at 06:00; Stop 02/04/17 at 15:32; Status DC Thiamine Mononitrate (Vitamin B-1) 100 mg DAILY PO ; Start 02/04/17 at 09:00; Stop 02/04/17 at 09:00; Status DC Multivitamins (Thera M Plus) 1 tab DAILY PO ; Start 02/04/17 at 09:15 Folic Acid (Folic Acid) 1 mg DAILY PO ; Start 02/04/17 at 09:15 Thiamine Mononitrate (Vitamin B-1) 100 mg DAILY PO ; Start 02/04/17 at 09:15 Lorazepam (Ativan) 2 mg PRN Q1HR PRN IV For CIWA 8-14; Start 02/04/17 at 13:00 Lorazepam (Ativan) 4 mg PRN Q1HR PRN IV For CIWA 15 or greater; Start 02/04/17 at 13:00 Lorazepam (Ativan) 1 mg BID PO Last administered on 02/05/17 08:31; Start at 21:00 Multivitamins 10 ml/Folic Acid 1 mg/Thiamine HCl 100 mg/Ringer's Solution 1, 011.2 ml @ 1,000 mls/ hr 1X ONCE IV Last administered on 02/04/17 14:15; Start 02/04/17 at 13:30; Stop 02/04/17 at 14:30; Status DC Famotidine (Pepcid) 20 mg BID IVP Last administered on 02/04/17 14:16; Start 02/04/17 at 13:30; Stop 02/04/17 at 16:56; Status DC Carvedilol (Coreg) 6.25 mg BIDWMEALS PO ; Start 02/04/17 at 17:00; Stop at 17:00; Status DC Carvedilol (Coreg) 3.125 mg BIDWMEALS PO Last administered on 02/05/17 08:30; Start 02/04/17 at 17:00 Pantoprazole Sodium 80 mg/ Sodium Chloride 100 ml @ 10 mls/hr Q10H IV Last administered on 02/05/17 01:41; Start 02/04/17 at 17:00 Potassium Chloride/Sodium Chloride 1,000 ml @ 100 mls/hr Q10H IV ; Start at 10:30 Vitals/I & O Vital Sign - Last 24 Hours 02/04/17 02/04/17 02/04/17 02/04/17 10:08 10:29 10:40 11:00 Temp 97.5 98.8 97.5 98.8 Pulse 129 84 Resp 17 20 B/P (MAP) 110/72 (85) 107/62 (77) Pulse Ox 84 O2 Delivery Room Air Room Air Room Air Room Air 02/04/17 02/04/17 02/04/17 02/04/17 15:00 17:21 19:00 20:00 Temp 97.9 100.6 97.9 100.6 Pulse 123 123 116 Resp 20 18 B/P (MAP) 147/84 (105) 147/84 170/90 (116) Pulse Ox 96 100 O2 Delivery Room Air Room Air Room Air 02/04/17 02/04/17 02/05/17 02/05/17 20:14 23:00 00:52 03:00 Temp 98.8 98.9 98.8 98.9 Pulse 109 104 109 108 Resp 18 18 20 B/P (MAP) 145/84 (104) 125/72 (89) 133/80 (97) 139/88 (105) Pulse Ox 100 98 95 O2 Delivery Room Air Room Air Room Air 02/05/17 02/05/17 07:00 08:30 Temp 98.4 98.4 Pulse 101 101 Resp 20 B/P (MAP) 136/95 (109) 136/95 Pulse Ox 95 O2 Delivery Room Air SHARONA SLATER MD Feb 05, 2017 10:04
[2017-02-05] MEDS ORDERED: IV RINGERS,LACTATED 1000ML 1,000 ML IV SCH (12:19)
[2017-02-05] MEDS ORDERED: LIDOCAINE 1% 1 ML SYRINGE. ID PRN (12:30)
[2017-02-05] MEDS ORDERED: fentaNYL PF VIAL 100 MCG/2 ML VIAL IV PRN ×2 (12:30)
[2017-02-05] MEDS ORDERED: MIDAZOLAM HCL/PF 2 MG/2 ML VIAL. IV PRN (12:30)
[2017-02-05] MEDS ORDERED: PROPOFOL 20 ML IV ONE (14:05)
--- NOTE | 2017-02-05 14:25 | PDOC4 ---
PROCEDURE Procedure EGD/biopsy Ind: melena/anemia Meds: per anesthesia. Findings: E--Mild, non-obstructing ring at GE jxn (38cm). No varices, M-W. G--Normal w/o varices, ulcer, etc. Biopsies from antrum. D--8mm ulcer anterior wall mid-bulb with clean base and no SRH; low-risk of rebleeding. Otherwise normal to 3rd portion. ray well. IMP: DU--probably bled before last night. Non-obstructing ring. REC: OK to have clears and advance ad riddhi. PO PPI. Await biopsies; treat if signs of H.pylori. Thanks. KAYLEEN CHAVEZ MD Feb 05, 2017 14:25
[2017-02-05] MEDS: PANTOPRAZOLE 40 MG TABLET.DR. PO SCH (16:40)
[2017-02-05] MEDS: VANCOMYCIN 125 MG/2.5 ML ORAL SOLUTION. PO SCH (23:58)
[2017-02-06 03:10] VITALS: BP 122/85
[2017-02-06 07:00] VITALS: BP 158/94
[2017-02-06] MEDS: PANTOPRAZOLE 40 MG TABLET.DR. PO SCH ×2 (08:25→16:18)
[2017-02-06] MEDS: LORazepam 1 MG TABLET PO SCH ×2 (08:26→21:30)
[2017-02-06] MEDS: CARVEDILOL 3.125 MG TABLET. PO SCH ×2 (08:26→16:19)
[2017-02-06] MEDS: THIAMINE 100 MG TABLET. PO SCH (08:27)
[2017-02-06] MEDS: FOLIC ACID 1 MG TABLET. PO SCH (08:27)
[2017-02-06] MEDS: MULTIVITAMIN with MINERAL TABLET. PO SCH (08:27)
[2017-02-06 09:55] LABS: BASO % 1 % (0-3); CREATININE 0.8 mg/dL (0.7-1.3); EOS % 3 % (0-3); GFR 96.1; HEMOGLOBIN 7.3 g/dL (13.0-17.5); LYMPH % 23 % (24-48); MEAN CORPUSCULAR HEMOGLOBIN 33 pg (25-35); MEAN CORPUSCULAR HGB CONC 35 g/dL (31-37); MEAN CORPUSCULAR VOLUME 94 fL (79-100); MONO % 9 % (0-9); NEUT % 65 % (31-73); PLATELET COUNT 101 x10^3/uL (140-400); POTASSIUM 3.4 mmol/L (3.5-5.1); RED BLOOD COUNT 2.21 x10^6/uL (4.30-5.70); RED CELL DISTRIBUTION WIDTH 14.6 % (11.5-14.5); WHITE BLOOD COUNT 4.3 x10^3/uL (4.0-11.0)
[2017-02-06 10:00] LABS: ALBUMIN 2.8 g/dL (3.4-5.0); DIRECT BILIRUBIN 0.5 mg/dL (0.0-0.2); HEMATOCRIT 20.8 % (39.0-53.0); TOTAL BILIRUBIN 1.3 mg/dL (0.2-1.0); TOTAL PROTEIN 5.3 g/dL (6.4-8.2)
--- NOTE | 2017-02-06 10:01 | PDOC ---
Subjective: Subjective: Doing better, no pain or diarrhea, tolerating PO. Objective: Objective: Tmax 100. Vital Signs: Vital Signs Date Time Temp Pulse Resp B/P (MAP) Pulse Ox O2 Delivery O2 Flow Rate FiO2 02/06/17 08:26 101 158/94 02/06/17 08:00 Room Air 02/06/17 07:00 98.9 18 94 98.9 02/05/17 14:20 3.0 Imaging: EGD 02/05/17 E--Mild, non-obstructing ring at GE jxn (38cm). No varices, M-W. G--Normal w/o varices, ulcer, etc. Biopsies from antrum. D--8mm ulcer anterior wall mid-bulb with clean base and no SRH; low-risk of rebleeding. Otherwise normal to 3rd portion. IMP: DU--probably bled before last night. Non-obstructing ring. PE: GEN: NAD LUNGS: clear HEART: tachy ABD: NABS, S/ND/NT NEURO/PSYCH: A & O 3 A/P: Duodenal ulcer -dark stools resolved -Hgb yesterday 7.7, labs ordered today -on PO PPI -normal colonoscopy (reportedly at [place] ~5 years ago) C Diff -on PO vanc Alcoholism, elevated LFTs -- Continue PPI and vanc. CHILO VIEYRA Feb 06, 2017 10:01
--- NOTE | 2017-02-06 10:06 | PATHOLOGY ---
PATHOLOGY REPORT * * * * * * * * FINAL DIAGNOSIS: Gastric biopsy, "gastric antrum biopsy": - Mild chronic gastritis arising in the background of chronic reactive gastropathy. - Immunoperoxidase stain reveals rare organisms consistent with Helicobacter pylori. (SHA:jani; 02/06/2017) REPORT ELECTRONICALLY SIGNED BY: Dimitry Horta M.D. DATE/TIME: 02/06/2017 10:05 * * * * * * * * GROSS PATHOLOGY: Received in formalin labeled "Katy Rodriguez, gastric antrum," are two segments of farrar soft tissue measuring 0.3 and 0.5 cm in maximum dimension. The specimen is submitted entirely in cassette A1. An immunoperoxidase stain to rule out Helicobacter pylori will be obtained. (JPM; 02/05/17) INITIAL CPT CODE(S): A; 53855, 16877 Professional services performed by [facility] [place] [address] Technical services performed by [facility] at [address] [place] [address], [place] [address]. SPECIMEN(S) RECEIVED: A.Gastric antrum CLINICAL HISTORY: GI bleed PATIENT: KATY RODRIGUEZ /AGE: 7 1950 (Age: 66) PATIENT #: [id number] ALT CASE #: SPECIMEN COLLECTION DATE: 02/05/2017 SPECIMEN RECEIVED DATE: 02/05/2017 [facility] - [address] [place] [address] - PHONE: [phone] * * * END OF REPORT * * *
[2017-02-06] MEDS: VANCOMYCIN 125 MG/2.5 ML ORAL SOLUTION. PO SCH ×4 (10:22→21:30)
[2017-02-06] MEDS ORDERED: POTASSIUM CHLORIDE 20 MEQ TABLET.ER. PO ONE (10:45)
[2017-02-06 11:00] VITALS: BP 121/81
[2017-02-06 14:57] VITALS: BP 128/79
--- NOTE | 2017-02-06 15:37 | PDOC ---
PROGRESS NOTES Chief Complaint Chief Complaint melena acute blood loss anemia, GI bleed, upper C. diff colitis improved Acute toxic encephalopathy, EtOH intoxication and etOH abuse cont EtOH withdrawl treatment Acute abd pain, gastritis, History of Present Illness History of Present Illness ENDo yesterday, c. diff pos last night, now no stools on PO Vanco Hgb dropped, then stable still in 7 range, PPI gtt no PRBC given cont ativan sched and PRN change IV fluid to have K+, hypokalemia today Vitals Vitals Vital Signs Date Time Temp Pulse Resp B/P (MAP) Pulse Ox O2 Delivery O2 Flow Rate FiO2 02/06/17 14:57 99.2 95 18 128/79 (95) 98 Room Air 99.2 02/05/17 14:20 3.0 Physical Exam General: Alert, Oriented X3, mild distress, moderate distress Heart: Regular rate Lungs: Wheezing Abdomen: Normal bowel sounds, Soft Extremities: No clubbing, No cyanosis Skin: No breakdown Labs LABS Laboratory Tests Test 02/06/17 09:25 White Blood Count 4.3 x10^3/uL (4.0-11.0) Red Blood Count 2.21 x10^6/uL (4.30-5.70) Hemoglobin 7.3 g/dL (13.0-17.5) Hematocrit 20.8 % (39.0-53.0) Mean Corpuscular Volume 94 fL (79-100) Mean Corpuscular Hemoglobin 33 pg (25-35) Mean Corpuscular Hemoglobin Concent 35 g/dL (31-37) Red Cell Distribution Width 14.6 % (11.5-14.5) Platelet Count 101 x10^3/uL (140-400) Neutrophils (%) (Auto) 65 % (31-73) Lymphocytes (%) (Auto) 23 % (24-48) Monocytes (%) (Auto) 9 % (0-9) Eosinophils (%) (Auto) 3 % (0-3) Basophils (%) (Auto) 1 % (0-3) Neutrophils # (Auto) 2.8 x10^3uL (1.8-7.7) Lymphocytes # (Auto) 1.0 x10^3/uL (1.0-4.8) Monocytes # (Auto) 0.4 x10^3/uL (0.0-1.1) Eosinophils # (Auto) 0.1 x10^3/uL (0.0-0.7) Basophils # (Auto) 0.0 x10^3/uL (0.0-0.2) Sodium Level 140 mmol/L (136-145) Potassium Level 3.4 mmol/L (3.5-5.1) Chloride Level 105 mmol/L (98-107) Carbon Dioxide Level 28 mmol/L (21-32) Anion Gap 7 (6-14) Blood Urea Nitrogen 9 mg/dL (8-26) Creatinine 0.8 mg/dL (0.7-1.3) Estimated GFR (Cockcroft-Gault) 96.1 Glucose Level 207 mg/dL (70-99) Calcium Level 8.0 mg/dL (8.5-10.1) Total Bilirubin 1.3 mg/dL (0.2-1.0) Direct Bilirubin 0.5 mg/dL (0.0-0.2) Aspartate Amino Transf (AST/SGOT) 264 U/L (15-37) Alanine Aminotransferase (ALT/SGPT) 192 U/L (16-63) Alkaline Phosphatase 55 U/L (46-116) Total Protein 5.3 g/dL (6.4-8.2) Albumin 2.8 g/dL (3.4-5.0) Review of Systems Review of Systems some weakness and abd pain, poor po intake no stool > 18 hours Assessment and Plan Assessmemt and Plan Problems Medical Problems: (1) Alcoholic ketoacidosis Status: Acute (2) Dehydration Status: Acute Problems: Comment Review of Relevant I have reviewed the following items renetta (where applicable) has been applied. Labs Laboratory Tests Test 02/04/17 17:15 02/04/17 18:45 02/04/17 22:45 02/05/17 04:10 White Blood Count 8.2 x10^3/uL (4.0-11.0) 7.7 x10^3/uL (4.0-11.0) Red Blood Count 2.41 x10^6/uL (4.30-5.70) 2.30 x10^6/uL (4.30-5.70) Hemoglobin 7.8 g/dL (13.0-17.5) 7.5 g/dL (13.0-17.5) Hematocrit 22.6 % (39.0-53.0) 21.7 % (39.0-53.0) Mean Corpuscular Volume 94 fL (79-100) 94 fL (79-100) Mean Corpuscular Hemoglobin 33 pg (25-35) 33 pg (25-35) Mean Corpuscular Hemoglobin Concent 35 g/dL (31-37) 35 g/dL (31-37) Red Cell Distribution Width 14.5 % (11.5-14.5) 14.1 % (11.5-14.5) Platelet Count 104 x10^3/uL (140-400) 98 x10^3/uL (140-400) Neutrophils (%) (Auto) 77 % (31-73) 68 % (31-73) Lymphocytes (%) (Auto) 14 % (24-48) 21 % (24-48) Monocytes (%) (Auto) 8 % (0-9) 10 % (0-9) Eosinophils (%) (Auto) 1 % (0-3) 1 % (0-3) Basophils (%) (Auto) 1 % (0-3) 0 % (0-3) Neutrophils # (Auto) 6.3 x10^3uL (1.8-7.7) 5.2 x10^3uL (1.8-7.7) Lymphocytes # (Auto) 1.2 x10^3/uL (1.0-4.8) 1.6 x10^3/uL (1.0-4.8) Monocytes # (Auto) 0.6 x10^3/uL (0.0-1.1) 0.8 x10^3/uL (0.0-1.1) Eosinophils # (Auto) 0.1 x10^3/uL (0.0-0.7) 0.1 x10^3/uL (0.0-0.7) Basophils # (Auto) 0.0 x10^3/uL (0.0-0.2) 0.0 x10^3/uL (0.0-0.2) Prothrombin Time 14.5 SEC (11.7-14.0) Prothromb Time International Ratio 1.2 (0.8-1.1) Clostridium difficile Toxin (PCR) Positive (Negative) Test 02/05/17 04:20 02/05/17 09:00 02/06/17 09:25 White Blood Count 6.9 x10^3/uL (4.0-11.0) 4.3 x10^3/uL (4.0-11.0) Red Blood Count 2.30 x10^6/uL (4.30-5.70) 2.21 x10^6/uL (4.30-5.70) Hemoglobin 7.7 g/dL (13.0-17.5) 7.3 g/dL (13.0-17.5) Hematocrit 21.8 % (39.0-53.0) 20.8 % (39.0-53.0) Mean Corpuscular Volume 95 fL (79-100) 94 fL (79-100) Mean Corpuscular Hemoglobin 34 pg (25-35) 33 pg (25-35) Mean Corpuscular Hemoglobin Concent 35 g/dL (31-37) 35 g/dL (31-37) Red Cell Distribution Width 14.5 % (11.5-14.5) 14.6 % (11.5-14.5) Platelet Count 98 x10^3/uL (140-400) 101 x10^3/uL (140-400) Neutrophils (%) (Auto) 71 % (31-73) 65 % (31-73) Lymphocytes (%) (Auto) 20 % (24-48) 23 % (24-48) Monocytes (%) (Auto) 8 % (0-9) 9 % (0-9) Eosinophils (%) (Auto) 1 % (0-3) 3 % (0-3) Basophils (%) (Auto) 1 % (0-3) 1 % (0-3) Neutrophils # (Auto) 4.9 x10^3uL (1.8-7.7) 2.8 x10^3uL (1.8-7.7) Lymphocytes # (Auto) 1.4 x10^3/uL (1.0-4.8) 1.0 x10^3/uL (1.0-4.8) Monocytes # (Auto) 0.5 x10^3/uL (0.0-1.1) 0.4 x10^3/uL (0.0-1.1) Eosinophils # (Auto) 0.1 x10^3/uL (0.0-0.7) 0.1 x10^3/uL (0.0-0.7) Basophils # (Auto) 0.0 x10^3/uL (0.0-0.2) 0.0 x10^3/uL (0.0-0.2) Prothrombin Time 14.0 SEC (11.7-14.0) Prothromb Time International Ratio 1.2 (0.8-1.1) Sodium Level 142 mmol/L (136-145) 140 mmol/L (136-145) Potassium Level 3.4 mmol/L (3.5-5.1) 3.4 mmol/L (3.5-5.1) Chloride Level 107 mmol/L (98-107) 105 mmol/L (98-107) Carbon Dioxide Level 27 mmol/L (21-32) 28 mmol/L (21-32) Anion Gap 8 (6-14) 7 (6-14) Blood Urea Nitrogen 25 mg/dL (8-26) 9 mg/dL (8-26) Creatinine 0.9 mg/dL (0.7-1.3) 0.8 mg/dL (0.7-1.3) Estimated GFR (Cockcroft-Gault) 83.9 96.1 BUN/Creatinine Ratio 28 (6-20) Glucose Level 155 mg/dL (70-99) 207 mg/dL (70-99) Calcium Level 7.3 mg/dL (8.5-10.1) 8.0 mg/dL (8.5-10.1) Total Bilirubin 2.3 mg/dL (0.2-1.0) 1.3 mg/dL (0.2-1.0) Aspartate Amino Transf (AST/SGOT) 39 U/L (15-37) 264 U/L (15-37) Alanine Aminotransferase (ALT/SGPT) 48 U/L (16-63) 192 U/L (16-63) Alkaline Phosphatase 45 U/L (46-116) 55 U/L (46-116) Total Protein 5.5 g/dL (6.4-8.2) 5.3 g/dL (6.4-8.2) Albumin 2.7 g/dL (3.4-5.0) 2.8 g/dL (3.4-5.0) Albumin/Globulin Ratio 1.0 (1.0-1.7) Ammonia 19 mcmol/L (11-34) Direct Bilirubin 0.5 mg/dL (0.0-0.2) Laboratory Tests Test 02/06/17 09:25 White Blood Count 4.3 x10^3/uL (4.0-11.0) Red Blood Count 2.21 x10^6/uL (4.30-5.70) Hemoglobin 7.3 g/dL (13.0-17.5) Hematocrit 20.8 % (39.0-53.0) Mean Corpuscular Volume 94 fL (79-100) Mean Corpuscular Hemoglobin 33 pg (25-35) Mean Corpuscular Hemoglobin Concent 35 g/dL (31-37) Red Cell Distribution Width 14.6 % (11.5-14.5) Platelet Count 101 x10^3/uL (140-400) Neutrophils (%) (Auto) 65 % (31-73) Lymphocytes (%) (Auto) 23 % (24-48) Monocytes (%) (Auto) 9 % (0-9) Eosinophils (%) (Auto) 3 % (0-3) Basophils (%) (Auto) 1 % (0-3) Neutrophils # (Auto) 2.8 x10^3uL (1.8-7.7) Lymphocytes # (Auto) 1.0 x10^3/uL (1.0-4.8) Monocytes # (Auto) 0.4 x10^3/uL (0.0-1.1) Eosinophils # (Auto) 0.1 x10^3/uL (0.0-0.7) Basophils # (Auto) 0.0 x10^3/uL (0.0-0.2) Sodium Level 140 mmol/L (136-145) Potassium Level 3.4 mmol/L (3.5-5.1) Chloride Level 105 mmol/L (98-107) Carbon Dioxide Level 28 mmol/L (21-32) Anion Gap 7 (6-14) Blood Urea Nitrogen 9 mg/dL (8-26) Creatinine 0.8 mg/dL (0.7-1.3) Estimated GFR (Cockcroft-Gault) 96.1 Glucose Level 207 mg/dL (70-99) Calcium Level 8.0 mg/dL (8.5-10.1) Total Bilirubin 1.3 mg/dL (0.2-1.0) Direct Bilirubin 0.5 mg/dL (0.0-0.2) Aspartate Amino Transf (AST/SGOT) 264 U/L (15-37) Alanine Aminotransferase (ALT/SGPT) 192 U/L (16-63) Alkaline Phosphatase 55 U/L (46-116) Total Protein 5.3 g/dL (6.4-8.2) Albumin 2.8 g/dL (3.4-5.0) Medications Current Medications Sodium Chloride 1,000 ml @ 1,000 mls/hr Q1H IV Last administered on 02/04/17 05:15; Start 02/04/17 at 04:46; Stop 02/04/17 at 05:45; Status DC Ondansetron HCl (Zofran) 4 mg 1X ONCE IV Last administered on 02/04/17 05:16 ; Start 02/04/17 at 05:00; Stop 02/04/17 at 05:18; Status DC Famotidine (Pepcid) 20 mg 1X ONCE IVP Last administered on 02/04/17 05:16; Start 02/04/17 at 05:00; Stop 02/04/17 at 05:18; Status DC Sodium Chloride 1,000 ml @ 1,000 mls/hr 1X ONCE IV Last administered on 05:40; Start 02/04/17 at 05:30; Stop 02/04/17 at 06:30; Status DC Ondansetron HCl (Zofran) 4 mg PRN Q8HRS PRN IV NAUSEA/VOMITING; Start 02/04/17 at 06:00; Stop 02/05/17 at 07:17; Status DC Sodium Chloride 1,000 ml @ 150 mls/hr Q6H40M IV Last administered on 00:20; Start 02/04/17 at 06:00; Stop 02/05/17 at 07:17; Status DC Multivitamins (Thera M Plus) 1 tab DAILY PO ; Start 02/04/17 at 09:00; Stop at 09:00; Status DC Folic Acid (Folic Acid) 1 mg DAILY PO ; Start 02/04/17 at 09:00; Stop 02/04/17 at 09:00; Status DC Lorazepam (Ativan) 2 mg Q6H PO Last administered on 02/04/17 12:15; Start at 06:00; Stop 02/04/17 at 15:32; Status DC Thiamine Mononitrate (Vitamin B-1) 100 mg DAILY PO ; Start 02/04/17 at 09:00; Stop 02/04/17 at 09:00; Status DC Multivitamins (Thera M Plus) 1 tab DAILY PO Last administered on 02/06/17 08: 27; Start 02/04/17 at 09:15 Folic Acid (Folic Acid) 1 mg DAILY PO Last administered on 02/06/17 08:27; Start 02/04/17 at 09:15 Thiamine Mononitrate (Vitamin B-1) 100 mg DAILY PO Last administered on 08:27; Start 02/04/17 at 09:15 Lorazepam (Ativan) 2 mg PRN Q1HR PRN IV For CIWA 8-14 Last administered on 02/06 02:14; Start 02/04/17 at 13:00 Lorazepam (Ativan) 4 mg PRN Q1HR PRN IV For CIWA 15 or greater; Start 02/04/17 at 13:00 Lorazepam (Ativan) 1 mg BID PO Last administered on 02/06/17 08:26; Start at 21:00 Multivitamins 10 ml/Folic Acid 1 mg/Thiamine HCl 100 mg/Ringer's Solution 1, 011.2 ml @ 1,000 mls/ hr 1X ONCE IV Last administered on 02/04/17 14:15; Start 02/04/17 at 13:30; Stop 02/04/17 at 14:30; Status DC Famotidine (Pepcid) 20 mg BID IVP Last administered on 02/04/17 14:16; Start 02/04/17 at 13:30; Stop 02/04/17 at 16:56; Status DC Carvedilol (Coreg) 6.25 mg BIDWMEALS PO ; Start 02/04/17 at 17:00; Stop at 17:00; Status DC Carvedilol (Coreg) 3.125 mg BIDWMEALS PO Last administered on 02/06/17 08:26; Start 02/04/17 at 17:00 Pantoprazole Sodium 80 mg/ Sodium Chloride 100 ml @ 10 mls/hr Q10H IV Last administered on 02/05/17 10:55; Start 02/04/17 at 17:00; Stop 02/05/17 at 14:27 ; Status DC Potassium Chloride/Sodium Chloride 1,000 ml @ 100 mls/hr Q10H IV Last administered on 02/06/17 06:28; Start 02/05/17 at 10:30 Midazolam HCl (Versed) 2 mg PRN 1X PRN IV PRIOR TO PROCEDURE; Start 02/05/17 at 12:30; Stop 02/06/17 at 12:29; Status DC Fentanyl Citrate (Fentanyl 2ml Vial) 25 mcg PRN Q5MIN PRN IV X 2 DOSES FOR PAIN ; Start 02/05/17 at 12:30; Stop 02/06/17 at 12:29; Status DC Fentanyl Citrate (Fentanyl 2ml Vial) 50 mcg PRN Q5MIN PRN IV X 2 DOSES FOR PAIN ; Start 02/05/17 at 12:30; Stop 02/06/17 at 12:29; Status DC Ringer's Solution 1,000 ml @ 125 mls/hr Q8H IV Last administered on 02/05/17 12:21; Start 02/05/17 at 12:19; Stop 02/05/17 at 19:17; Status DC Lidocaine HCl 2 ml 1X PRN PRN ID IV START; Start 02/05/17 at 12:30; Stop at 12:29; Status DC Propofol 20 ml @ As Directed STK-MED ONCE IV ; Start 02/05/17 at 14:05; Stop at 14:06; Status DC Pantoprazole Sodium (Protonix) 40 mg BIDAC PO Last administered on 02/06/17 08 :25; Start 02/05/17 at 16:30 Vancomycin HCl 125 mg [id number] PO Last administered on 02/06/17 13:38; Start at 23:30 Potassium Chloride (Klor-Con) 40 meq 1X ONCE PO Last administered on t 10:56; Start 02/06/17 at 10:45; Stop 02/06/17 at 10:46; Status DC Vitals/I & O Vital Sign - Last 24 Hours 02/05/17 02/05/17 02/05/17 02/05/17 16:41 19:34 20:00 23:02 Temp 100.0 99.4 100.0 99.4 Pulse 104 97 105 Resp 19 16 B/P (MAP) 127/93 144/93 (110) 117/72 (87) Pulse Ox 98 99 O2 Delivery Room Air Room Air Room Air 02/06/17 02/06/17 02/06/17 02/06/17 03:10 07:00 08:00 08:26 Temp 98.7 98.9 98.7 98.9 Pulse 97 101 101 Resp 16 18 B/P (MAP) 122/85 (97) 158/94 (115) 158/94 Pulse Ox 97 94 O2 Delivery Room Air Room Air Room Air 02/06/17 02/06/17 11:00 14:57 Temp 98.6 99.2 98.6 99.2 Pulse 101 95 Resp 18 18 B/P (MAP) 121/81 (94) 128/79 (95) Pulse Ox 94 98 O2 Delivery Room Air Room Air Intake and Output 02/06/17 02/06/17 02/07/17 15:00 23:00 07:00 Output Total 500 ml Balance -500 ml SHARONA SLATER MD Feb 06, 2017 15:36
[2017-02-06 19:00] VITALS: BP 134/72
[2017-02-06 22:41] VITALS: BP 135/87
[2017-02-07 02:09] VITALS: BP 142/88
[2017-02-07 05:55] LABS: BASO % 1 % (0-3); EOS % 3 % (0-3); HEMOGLOBIN 7.5 g/dL (13.0-17.5); LYMPH # 1.4 x10^3/uL (1.0-4.8); LYMPH % 32 % (24-48); MEAN CORPUSCULAR HEMOGLOBIN 34 pg (25-35); MEAN CORPUSCULAR HGB CONC 36 g/dL (31-37); MEAN CORPUSCULAR VOLUME 94 fL (79-100); MONO % 10 % (0-9); NEUT % 54 % (31-73); PLATELET COUNT 120 x10^3/uL (140-400); RED BLOOD COUNT 2.21 x10^6/uL (4.30-5.70); RED CELL DISTRIBUTION WIDTH 14.5 % (11.5-14.5); WHITE BLOOD COUNT 4.3 x10^3/uL (4.0-11.0)
[2017-02-07 06:06] LABS: CALCIUM 8.2 mg/dL (8.5-10.1); CREATININE 0.9 mg/dL (0.7-1.3); GFR 83.9; POTASSIUM 3.7 mmol/L (3.5-5.1)
[2017-02-07 06:09] LABS: HEMATOCRIT 20.9 % (39.0-53.0)
[2017-02-07 07:00] VITALS: BP 122/66
[2017-02-07] MEDS: PANTOPRAZOLE 40 MG TABLET.DR. PO SCH (08:21)
[2017-02-07] MEDS: LORazepam 1 MG TABLET PO SCH (08:22)
[2017-02-07] MEDS: CARVEDILOL 3.125 MG TABLET. PO SCH (08:22)
[2017-02-07] MEDS: VANCOMYCIN 125 MG/2.5 ML ORAL SOLUTION. PO SCH ×2 (08:22→13:41)
[2017-02-07] MEDS: MULTIVITAMIN with MINERAL TABLET. PO SCH (08:23)
[2017-02-07] MEDS: FOLIC ACID 1 MG TABLET. PO SCH (08:23)
[2017-02-07] MEDS: THIAMINE 100 MG TABLET. PO SCH (08:23)
[2017-02-07 08:57] LABS: DIRECT BILIRUBIN 0.2 mg/dL (0.0-0.2); TOTAL BILIRUBIN 0.8 mg/dL (0.2-1.0); TOTAL PROTEIN 5.9 g/dL (6.4-8.2)
[2017-02-07] MEDS ORDERED: FERROUS SULFATE ORAL 300 MG/5 ML SOLUTION. PO SCH (09:00)
[2017-02-07] MEDS ORDERED: VITAMIN B12,B9,B6 COMPLEX 1 TABLET. PO SCH (09:00)
--- NOTE | 2017-02-07 09:47 | PDOC ---
Subjective: Subjective: Doing okay, denies pain and diarrhea. Objective: Objective: Per RN - no diarrhea or bleeding. Eating well. Vital Signs: Vital Signs Date Time Temp Pulse Resp B/P (MAP) Pulse Ox O2 Delivery O2 Flow Rate FiO2 02/07/17 08:22 91 122/66 02/07/17 07:00 98.1 16 99 Room Air 98.1 Labs: Laboratory Tests Test 02/07/17 04:35 White Blood Count 4.3 x10^3/uL Red Blood Count 2.21 x10^6/uL Hemoglobin 7.5 g/dL Hematocrit 20.9 % Mean Corpuscular Volume 94 fL Mean Corpuscular Hemoglobin 34 pg Mean Corpuscular Hemoglobin Concent 36 g/dL Red Cell Distribution Width 14.5 % Platelet Count 120 x10^3/uL Neutrophils (%) (Auto) 54 % Lymphocytes (%) (Auto) 32 % Monocytes (%) (Auto) 10 % Eosinophils (%) (Auto) 3 % Basophils (%) (Auto) 1 % Neutrophils # (Auto) 2.4 x10^3uL Lymphocytes # (Auto) 1.4 x10^3/uL Monocytes # (Auto) 0.5 x10^3/uL Eosinophils # (Auto) 0.1 x10^3/uL Basophils # (Auto) 0.0 x10^3/uL Sodium Level 142 mmol/L Potassium Level 3.7 mmol/L Chloride Level 105 mmol/L Carbon Dioxide Level 28 mmol/L Anion Gap 9 Blood Urea Nitrogen 9 mg/dL Creatinine 0.9 mg/dL Estimated GFR (Cockcroft-Gault) 83.9 Glucose Level 127 mg/dL Calcium Level 8.2 mg/dL Total Bilirubin 0.8 mg/dL Direct Bilirubin 0.2 mg/dL Aspartate Amino Transf (AST/SGOT) 209 U/L Alanine Aminotransferase (ALT/SGPT) 214 U/L Alkaline Phosphatase 55 U/L Total Protein 5.9 g/dL Albumin 3.0 g/dL PE: GEN: NAD, was asleep LUNGS: CTAB HEART: RRR ABD: S/ND/NT NEURO/PSYCH: A & O 3, drowsy A/P: Duodenal ulcer -Hgb in 7s -on PO PPI C Diff -on PO vanc -normal colonoscopy (reportedly at [place] ~5 years ago) Alcoholism w/ elevated LFTs (stable) -- Continue PPI and vanc. DC per primary. CHILO VIEYRA Feb 07, 2017 09:47
[2017-02-07 11:00] VITALS: BP 140/90
[2017-02-07] MEDS ORDERED: CYAN1TAB19 PO (11:09)
[2017-02-07] MEDS ORDERED: PANT40TA5 PO (11:09)
[2017-02-07] MEDS ORDERED: METR500T PO (11:09)
[2017-02-07] MEDS ORDERED: CARV3.122 PO (11:09)
== END 2017-02-07 14:45 | disposition home or self-care (01) | DRG 377 ==
LOC: ER 03:47 → 5 NORTH 05:31 → ER 07:58
PROVIDERS: ADMIT Internal Medicine; ATTEND Internal Medicine
PROC: 0DB68ZX Excision of Stomach, Via Natural or Artificial Opening Endoscopic, Diagnostic (ICD-10-PCS; principal; 2017-02-05 13:00)
DX: K26.4 Chronic or unspecified duodenal ulcer with hemorrhage (principal); G92 Toxic encephalopathy; E87.2 Acidosis; A04.7 Enterocolitis due to Clostridium difficile; F10.239 Alcohol dependence with withdrawal, unspecified; D62 Acute posthemorrhagic anemia; K29.71 Gastritis, unspecified, with bleeding; F19.10 Other psychoactive substance abuse, uncomplicated; E86.0 Dehydration; E11.9 Type 2 diabetes mellitus without complications; E87.6 Hypokalemia; K21.9 Gastro-esophageal reflux disease without esophagitis; F12.90 Cannabis use, unspecified, uncomplicated; M19.90 Unspecified osteoarthritis, unspecified site; Z88.0 Allergy status to penicillin; W18.30XA Fall on same level, unspecified, initial encounter; Y90.8 Blood alcohol level of 240 mg/100 ml or more; Y92.009 Unspecified place in unspecified non-institutional (private) residence as the place of occurrence of the external cause
CPT/HCPCS: 36415; 74022; 80048; 80053; 80076; 82140; 82962; 83690; 85025; 85610; 86850; 86900; 86901; 87324; 88305; 88342; 93005; 96361; 96374; 96375; C9113; G0480; J2060; J2405; J2704; J7030; J7120; S0028; 99285-25